=== PATIENT | female | born 1965 | race Native Hawaiian/Other Pacific Islander ===

== ENCOUNTER 2021-01-20 09:42 | Outpatient (CLI) | payer OTHER | END 2021-01-20 21:47 | disposition home or self-care (01) | LOC: RESP 09:42 | PROVIDERS: ATTEND Specialist | DX: R94.31 Abnormal electrocardiogram [ECG] [EKG] (principal); R06.00 Dyspnea, unspecified; R07.89 Other chest pain; Z91.89 Other specified personal risk factors, not elsewhere classified; R94.2 Abnormal results of pulmonary function studies; I10 Essential (primary) hypertension ==

== ENCOUNTER 2021-02-14 07:59 | Outpatient (CLI) | payer OTHER ==
[~2021-02-14] VITALS: Ht 30.5 cm; Wt 0.0 kg
== END 2021-02-14 20:57 | disposition home or self-care (01) ==
LOC: NM 07:59
PROVIDERS: ATTEND Specialist
DX: I10 Essential (primary) hypertension (principal); E78.2 Mixed hyperlipidemia; R94.31 Abnormal electrocardiogram [ECG] [EKG]; R60.9 Edema, unspecified; R06.00 Dyspnea, unspecified; R00.2 Palpitations; Z82.49 Family history of ischemic heart disease and other diseases of the circulatory system; Z91.89 Other specified personal risk factors, not elsewhere classified; R94.2 Abnormal results of pulmonary function studies; Z87.891 Personal history of nicotine dependence; E66.01 Morbid (severe) obesity due to excess calories
CPT/HCPCS: A9500; J2785

== ENCOUNTER 2022-01-30 07:40 | Outpatient (CLI) | payer OTHER | END 2022-01-30 18:56 | disposition home or self-care (01) | LOC: RESP 07:40 | PROVIDERS: ATTEND Nurse Practitioner Family | DX: R06.09 Other forms of dyspnea (principal) ==

== ENCOUNTER 2022-04-18 12:59 | Outpatient (CLI) | payer OTHER | END 2022-04-18 19:25 | disposition home or self-care (01) | LOC: RAD 12:59 | PROVIDERS: ATTEND Internal Medicine Sleep Medicine | DX: R06.09 Other forms of dyspnea (principal) ==